=== PATIENT | male | born 1960 | race Caucasian/White ===

== ENCOUNTER 2024-04-08 08:58 | Day surgery (SDC) | payer BC, SELFPAY ==
[2024-04-08] VITALS (11 sets, daily range): BP systolic 123–163; BP diastolic 73–95; BMI 25.0
[2024-04-08] MEDS: NSS 237 ML IV (09:54)
[2024-04-08 11:11] LABS: ACT-LR - POC 300 Seconds (116-155)
--- NOTE | 2024-04-08 11:28 | ITS.CL.CATH ---
[employer] - Catheterization
Cardiac Catheterization
Procedure Report:
CARDIAC CATHETERIZATION REPORT
Date of Procedure: 03/19/2024
Referring: Roddy Gould MD
Indication: Abnormal stress echo with sizable area of suspected anterior ischemia. The patient is asymptomatic
HEMODYNAMIC DATA
AO: 132/77
LV: 132/15
LEFT VENTRICULOGRAPHY: Normal with ventricular wall motion with EF 61%
CORONARY ANGIOGRAPHY
Dominance: Codominant
Left Main: Normal
LAD: Mild proximal calcification with a focal 40% ostial/proximal LAD stenosis. There are otherwise trivial luminal irregularities in the LAD proper
Circumflex: Large distribution codominant vessel which is angiographically normal. The circumflex terminates with a very small PDA
RCA: Codominant vessel with 30% mid stenosis. The RCA terminates with a moderate to large RPDA
FloWire assessment: At the conclusion of the diagnostic study we proceeded with FloWire assessment. Angiographically, the ostial/proximal LAD lesion was not severe. However, he had a large area of potential ischemia in the anterior distribution on
stress echo and I was concerned that the lesion may be functionally more significant than its angiographic appearance. Heparin was used for anticoagulation. A 6 Sami JL 3.5 guide catheter was used. A Overlay.tv wire was advanced into the mid to
distal LAD. iFR measurements were 0.94, 0.94, and 0.96. These are all consistent with nonflow-limiting disease.
Closure Device: None-the procedure was formed via the right radial artery. The Lino's test was normal prior to the procedure.
Radiation (mGy): 332
DAP (cm2.Gy): 29.3
Fluoroscopy time: 6.0 minutes
CONCLUSIONS
1: Normal left ventricular function with EF 61%
2: Mild CAD as described. The LAD disease is nonflow limiting by iFR criteria
3. Recommend continued aspirin and statin to achieve LDL less than 70
Copy to: Roddy Gould MD, Tim Rebollar MD
Pedro Sagastume MD, [facility], [facility]
[2024-04-08] MEDS: NSS 357 IV (11:51)
== END 2024-04-08 14:30 | disposition home or self-care (01) ==
LOC: CATH 08:58
PROVIDERS: ATTENDING PHYSICIAN Internal Medicine Cardiovascular Disease; FAMILY PHYSICIAN Internal Medicine; OTHER PHYSICIAN Internal Medicine Cardiovascular Disease
DX: I25.10 Atherosclerotic heart disease of native coronary artery without angina pectoris (principal); R93.1 Abnormal findings on diagnostic imaging of heart and coronary circulation; I44.7 Left bundle-branch block, unspecified; Z82.49 Family history of ischemic heart disease and other diseases of the circulatory system; Z87.891 Personal history of nicotine dependence; Z79.82 Long term (current) use of aspirin
CPT/HCPCS: C1769; 85347; 93005; 93458; 93571; C1894; Q9967